=== PATIENT | female | born 1980 | race Caucasian/White ===

== ENCOUNTER 2017-01-21 14:31 | Emergency (ER) | payer OTHER ==
[2017-01-21 14:45] VITALS: TEMP 97.7
--- NOTE | 2017-01-21 14:55 | CPEKG ---
Heart Rate: 96 RR Interval: 625 P-R Interval: 156 QRSD Interval: 100 QT Interval: 348 QTC Interval: 440 P Canon: 61 QRS Canon: 7 T Wave Canon: 48 EKG Severity - NORMAL ECG - EKG Impression: SINUS RHYTHM Electronically Signed By: Rayshawn Quintero 23-Jan-2017 16:46:39
--- NOTE | 2017-01-21 15:10 | EDPHY ---
HPI/HX/ROS/PE/MDM Narrative: CHIEF COMPLAINT: Chest tightness. HPI: This patient is a healthy 36 year old female complaining of an abnormal heartbeat sensation following lunch this afternoon. She has history of heart palpitations, and has been evaluated by her primary care physician in the past with normal EKG studies. Her heart felt quite irregular for about two weeks one month ago, but this sensation had resolved. 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 Over the last two days, she has experienced chest tightness. Today after lunch, she felt a sinking feeling in her chest "like going down an elevator". This was accompanied by sensations of dizziness and panic. She did not lose consciousness. Currently, she is feeling well. She endorses some mild chest tightness. Taking a deep breath makes her feel improved. She denies taking any regular medications, only vitamins and supplements. She endorses caffeine consumption this morning. The patient denies personal or immediate family history of CAD or stroke. She denies headache, nausea, vomiting, shortness of breath, or other associated symptoms. No recent trauma or illness. REVIEW OF SYSTEMS: Aside from elements discussed in the HPI, a comprehensive 10-point review of systems was reviewed and is negative. PMH: Denies. SOCIAL HISTORY: Mother at bedside. 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 Former smoker, quit two months ago. Lives in [place]. PHYSICAL EXAM: General:Patient is alert, in no acute distress. ENT:Eyes are normal to inspection. ENT inspection normal. Neck: Normal inspection. Full range of motion. Respiratory:No respiratory distress. Breath sounds normal bilaterally. Cardiovascular: Regular rate and rhythm. Strong peripheral pulses. Normal cap refill. Abdomen:The abdomen is nontender to palpation. There are no peritoneal signs. There are normal bowel sounds. Back: Normal to inspection. No tenderness to palpation. Skin: Normal color. No rash. Warm and dry. Extremities: Normal appearance. Full range of motion. Neuro: Oriented x3. Normal motor function. Normal sensory function. ED Course: 36 year old female presents following an abnormal heart sensation with associated dizziness and anxiety earlier today, now largely resolved. Physical exam is unremarkable. IV established. Plan for EKG, chest x-ray, labs including CBC, BMP, Troponin, BHCG. Laboratory studies unremarkable. Troponin negative. Chest x-ray normal. 16:20 Reassessed patient. Discussed results. Plan to discharge home in good condition. She will follow up with cardiology for a Holter monitor study to evaluate her palpitations. Return precautions discussed. She is comfortable with this plan. MDM: This is a young healthy female with palpitations. No abnormal beats or rhythms noted on ECG or telemetry. Workup including troponin, HCG, electrolytes normal. The patient's description of symptoms most closely matches frequent PVCs, although she understands it is impossible to know for certain without symptoms captured by monitoring. She feels comfortable going home and avoiding caffeine , alcohol, stress. - Data Points Imaging: I viewed and interpreted images myself Laboratory Results: Laboratory Results 01/21/17 14:55 01/21/17 14:55 01/21/17 01/21/17 01/21/17 14:55 14:55 14:55 WBC 7.92 10^3/uL 10^3/uL (3.80-9.50) RBC 4.57 10^6/uL 10^6/uL (4.18-5.33) Hgb 14.9 g/dL g/dL (12.6-16.3) Hct 42.7 % % (38.0-47.0) MCV 93.4 fL fL (81.5-99.8) MCH 32.6 pg pg (27.9-34.1) MCHC 34.9 g/dL g/dL (32.4-36.7) RDW 12.3 % % (11.5-15.2) Plt Count 215 10^3/uL 10^3/uL (150-400) MPV 11.6 fL fL (8.7-11.7) Neut % (Auto) 62.7 % % (39.3-74.2) Lymph % (Auto) 26.5 % % (15.0-45.0) [place] % (Auto) 6.7 % % (4.5-13.0) Eos % (Auto) 2.9 % % (0.6-7.6) Baso % (Auto) 0.8 % % (0.3-1.7) Nucleat RBC Rel Count 0.0 % % (0.0-0.2) Absolute Neuts (auto) 4.97 10^3/uL 10^3/uL (1.70-6.50) Absolute Lymphs (auto) 2.10 10^3/uL 10^3/uL (1.00-3.00) Absolute Monos (auto) 0.53 10^3/uL 10^3/uL (0.30-0.80) Absolute Eos (auto) 0.23 10^3/uL 10^3/uL (0.03-0.40) Absolute Basos (auto) 0.06 10^3/uL 10^3/uL (0.02-0.10) Absolute Nucleated RBC 0.00 10^3/uL 10^3/uL (0-0.01) Immature Gran % 0.4 % % (0.0-1.1) Immature Gran # 0.03 10^3/uL 10^3/uL (0.00-0.10) Sodium 140 mEq/L mEq/L (134-144) Potassium 3.4 mEq/L L mEq/L (3.5-5.2) Chloride 104 mEq/L mEq/L (97-110) Carbon Dioxide 23 mEq/l mEq/l (22-31) Anion Gap 13 mEq/L mEq/L (8-16) BUN 11 mg/dL mg/dL (7-23) Creatinine 0.7 mg/dL mg/dL (0.6-1.0) Estimated GFR > 60 Glucose 89 mg/dL mg/dL (70-100) Calcium 9.7 mg/dL mg/dL (8.5-10.4) Troponin I < 0.012 ng/mL ng/mL (0.000-0.034) Beta HCG, Qual NEGATIVE General Time Seen by Provider: 01/21/17 15:07 Initial Vital Signs: Initial Vital Signs Temperature (C) 36.5 C 01/21/17 14:42 Heart Rate 107 H 01/21/17 14:42 Respiratory Rate 22 H 01/21/17 14:42 Blood Pressure 164/99 H 01/21/17 14:42 O2 Sat (%) 98 01/21/17 14:42 O2 Delivery Mode Room Air Allergies/Adverse Reactions: erythromycin base Allergy (Verified 01/21/17 14:42) Home Medications: Medication Instructions Recorded BIOTIN 01/21/17 MULTIVITAMINS 01/21/17 Departure - Departure Disposition: Home, Routine, Self-Care Clinical Impression: Palpitations Condition: Good Instructions: Palpitations (ED) Additional Instructions: 1. Follow up with cardiology for continued evaluation of your symptoms. I recommend a Holter monitor to record your abnormal heartbeats. 2. Follow-up with your primary doctor within 72 hours. 3. Return to the Emergency Department for fever, chest pain, shortness of breath , increasing pain or other worsening of condition. Referrals: KARTHIKEYAN BERKOWITZ [Other] - As per Instructions Blayne Koroma MD [Medical Doctor] - As per Instructions Report Scribed for: Cheo Bee Report Scribed by: Noemi Colon Date of Report: 01/21/17 Time of Report: 15:10 Physician Review and Approval Statement: Portions of this note were transcribed by an ED scribe. I personally performed the history, physical exam, and medical decision making; and confirm the accuracy of the information in the transcribed note.
[2017-01-21 15:27] LABS: % IMMATURE GRANULYOCYTES 0.4 % (0.0-1.1); ABSOLUTE IMMATURE GRANULOCYTES 0.03 10^3/uL (0.00-0.10); ADD DIFF? NO; ADD MORPH? NO; ADD SCAN? NO; ATYPICAL LYMPHOCYTE FLAG 10 (0-99); FRAGMENT RBC FLAG 0 (0-99); HEMATOCRIT 42.7 % (38.0-47.0); HEMOGLOBIN 14.9 g/dL (12.6-16.3); LEFT SHIFT FLG 0 (0-99); LIPEMIA HEMOLYSIS FLAG 90 (0-99); MEAN CELL HEMOGLOBIN 32.6 pg (27.9-34.1); MEAN CELL HEMOGLOBIN CONCENTR. 34.9 g/dL (32.4-36.7); MEAN CELL VOLUME 93.4 fL (81.5-99.8); MEAN PLATELET VOLUME 11.6 fL (8.7-11.7); PLATELET CLUMPS FLAG 0 (0-99); PLATELET COUNT 215 10^3/uL (150-400); RED BLOOD CELL COUNT 4.57 10^6/uL (4.18-5.33); RED CELL DISTRIBUTION WIDTH 12.3 % (11.5-15.2)
[2017-01-21 15:33] LABS: ANION GAP 13 mEq/L (8-16); CALCIUM 9.7 mg/dL (8.5-10.4); CARBON DIOXIDE 23 mEq/l (22-31); CHLORIDE 104 mEq/L (97-110); CREATININE 0.7 mg/dL (0.6-1.0); GLOMERULAR FILTRATION RATE > 60; GLUCOSE 89 mg/dL (70-100); POTASSIUM 3.4 mEq/L (3.5-5.2); SODIUM 140 mEq/L (134-144)
[2017-01-21 15:45] LABS: TROPONIN I < 0.012 ng/mL (0.000-0.034)
[2017-01-21 16:14] VITALS: O2SAT 96
[2017-01-21 16:57] VITALS: BP 131/77; PULSE 76; RESP 18
== END 2017-01-21 16:55 | disposition home or self-care (01) ==
DX: R00.2 Palpitations (principal); Z87.891 Personal history of nicotine dependence